=== PATIENT | male | born 1975 | race Caucasian/White ===

== ENCOUNTER 2016-03-16 16:42 | Inpatient (IN) ==
--- NOTE | 2016-03-16 17:20 | Emergency Department Note ---
Disposition Clinical Impression: Suicidal ideation, History of bipolar disorder, History of schizophrenia Disposition: Admitted As Inpatient Time of Disposition: 22:06 (Admitted to 1a) Psych HPI - General Chief Complaint: ED Psychiatric Symptoms Stated Complaint: SI "I feel like I dont want to live anymore" Time Seen by Provider: 03/16/16 17:07 Source: patient Mode of arrival: ambulatory Limitations: no limitations Nursing Notes Reviewed: Yes Vital Signs Reviewed: Yes - History of Present Illness HPI Narrative: Patient is a 40-year-old male with past history of bipolar disorder, schizophrenia, COPD. Patient says that he takes psychiatric medications but he cannot remember what they are. He follows with [facility]. Patient says that he has had a admissions in the past due to suicidal ideation. He presents today due to feeling depressed, suicidal ideation with a plan to hang himself. He denies any homicidal ideation. Denies hearing any voices or seeing any visual hallucinations. Denies any chest pain, shortness breath, nausea, vomiting, fevers, abdominal pain, urinary complaints of burning or blood in urine, no change in bowel habits. - Related Data Previous Rx's Medication Instructions Recorded Citalopram Hydrobromide [Celexa] 20 mg PO DAILY #30 tablet 08/25/15 Hydroxyzine HCl 50 mg PO TID PRN #90 tablet 08/25/15 RisperiDONE MICROSPHERES 50 mg IM Q2W #1 syringe 08/25/15 [RisperDAL CONSTA] RisperiDONE [RisperDAL] 2 mg PO HS #30 tablet 08/25/15 TraMADol [Ultram] 50 mg PO BID PRN #60 tablet 08/25/15 HYDROcodone/Acet 5/325 mg [[place] 1 tab PO Q6H PRN #12 tab 09/03/15 5-325 mg] Allergies Allergy/AdvReac Type Severity Reaction Status Date / Time No Known Allergies Allergy Verified 03/16/16 16:48 Constitutional: Denies: fever ENT ED: Denies: ear pain, throat pain Cardiovascular: Denies: chest pain, palpitations Respiratory: Denies: cough, dyspnea, wheezes Gastrointestinal: Denies: abdominal pain, nausea, vomiting, diarrhea, constipation Genitourinary: Denies: urgency, dysuria, frequency, hematuria Musculoskeletal: Denies: back pain, neck pain, joint swelling Integumentary: Denies: rash Neurological: Denies: headache, weakness, numbness Psychiatric: Reports: anxiety, depression, suicidal thoughts Past Medical History - Past Medical History Attestation: Yes The following information was validated with the patient. Source: patient Medical history: Reports: asthma, COPD, hypertension Psychiatric history: Reports: anxiety, schizophrenia, previous psychiatric hospitalization, other - Social History Smoking Status: Current every day smoker Smokeless Tobacco Status: No Alcohol use: Reports: none Drug use: Reports: marijuana Physical Exam - General Limitations: no limitations General appearance: alert - Head Head exam: atraumatic, normocephalic, normal inspection - Eye Eye exam: Present: normal appearance, PERRL, EOMI - ENT ENT exam: normal exam, normal oropharynx, mucous membranes moist - Neck Neck exam: Present: normal inspection, full ROM, trachea midline - Chest Chest inspection: Present: normal inspection, symmetric chest wall rise - Respiratory Respiratory exam: Present: wheezes (Mild wheeze in bilateral lower lobes) - Cardiovascular Cardiovascular exam: Present: regular rate, normal rhythm, normal heart sounds - Abdominal Exam Abdominal exam: Present: soft, Non-Tender. Absent: tenderness, distention, guarding, rebound, rigidity - Extremities Exam Extremities exam: Present: normal inspection, full ROM. Absent: tenderness, pedal edema - Back Exam Back exam: Present: normal inspection, full ROM. Absent: tenderness - Neurological Exam Neurological exam: Present: alert, oriented X3 - Psychiatric Psychiatric exam: Present: normal affect, normal mood - Skin Skin exam: Present: warm, dry, intact, normal color Course Course Narrative: Vitals within normal limits. Physical exam showed mild wheezes in bilateral lower lobes. Otherwise, the rest of the physical and was benign. Patient has suicidal ideation with plan to hang himself. We will obtain basic medical clearance labs and then consult psychiatric team for further evaluation. 22:04 patient has been evaluated by psychiatric team. They believe that the patient needs admitted for further care. [place] slip has been signed by Dr. Sanchez. Vital Signs Temperature 98.2 F 03/16/16 16:43 Pulse Rate 77 03/16/16 16:43 Respiratory Rate 16 03/16/16 16:43 Blood Pressure 147/86 03/16/16 16:43 O2 Sat by Pulse Oximetry 96 03/16/16 16:43 Temperature 98.2 F 03/16/16 16:43 Pulse Rate 77 03/16/16 17:20 Respiratory Rate 16 03/16/16 17:20 Blood Pressure 147/86 03/16/16 17:20 O2 Sat by Pulse Oximetry 96 03/16/16 17:20 Oxygen Delivery Oxygen Delivery Room Air Psych - MDM Narrative Medical decision making narrative: Vitals within normal limits. Physical exam showed mild wheezes in bilateral lower lobes. Otherwise, the rest of the physical and was benign. Patient has suicidal ideation with plan to hang himself. We will obtain basic medical clearance labs and then consult psychiatric team for further evaluation. 22:04 patient has been evaluated by psychiatric team. They believe that the patient needs admitted for further care. [place] slip has been signed by Dr. Sanchez. - Lab Data Result diagrams: 03/16/16 17:54 03/16/16 17:54 Lab Results 03/16/16 03/16/16 03/16/16 Range/Units 17:29 17:29 17:54 WBC 10.7 (4.3-11.1) K/mcL RBC 4.87 (4.19-5.50) M/mcL Hgb 14.7 (12.9-16.9) g/dL Hct 43.3 (37.5-50.1) % MCV 88.9 (83.0-100.0) fL MCH 30.2 (28.0-33.3) pg MCHC 33.9 (31.6-35.5) g/dL RDW 12.7 (11.5-14.5) % Plt Count 299 (140-400) K/mcL MPV 9.4 (9.4-12.4) fL Immature Gran % 0.4 (0-4) % Seg Neutrophils % 63.7 % Lymphocytes % 23.6 % Monocytes % 9.0 % Eosinophils % 2.7 % Basophils % 0.6 % Neutrophils # 6.8 (1.6-8.9) K/mcL Lymphocytes # 2.5 (0.6-4.6) K/mcL Monocytes # 1.0 (0.0-1.3) K/mcL Eosinophils # 0.3 (0.0-0.6) K/mcL Basophils # 0.1 (0.0-0.2) K/mcL Sodium (136-145) mEq/L Potassium (3.5-4.5) mEq/L Chloride (98-109) mEq/L Carbon Dioxide (19-29) mEq/L BUN (8-26) mg/dL Creatinine (0.72-1.25) mg/dL Est GFR ( Amer) (> 60) Est GFR (Non-Af Amer) (> 60) BUN/Creatinine Ratio (6-26) Glucose (70-99) mg/dL Calculated Osmolality (280-300) Calcium (8.6-10.8) mg/dL Urine Color Yellow (Yellow) Urine Clarity Clear (Clear) Urine pH 7.0 (5.0-8.0) pH Units Ur Specific [place] < 1.005 L (1.010-1.025) Urine Protein Negative (Neg-Trace) mg/dL Urine Glucose (UA) Normal (Normal) mg/dL Urine Ketones Negative (Negative) mg/dL Urine Blood Negative (Negative) Urine Nitrite Negative (Negative) Urine Bilirubin Negative (Negative) Urine Urobilinogen Normal (Normal) mg/dL Ur Leukocyte Esterase Trace H (Negative) Urine Microscopic RBC 0-3 (0-3) per hpf Urine Microscopic WBC 0-3 (0-3) per hpf Ur Squamous Epith Cells None Seen (None-Few) per lpf Urine Bacteria None Seen (None-Few) per hpf Hyaline Casts None Seen (None-Few) per lpf Salicylates (15-30) mg/dL Urine Opiates Screen Negative (Yswwgh=099) ng/mL Acetaminophen (10-30) mcg/mL Ur Barbiturates Screen Negative (Ippfko=288) ng/mL Ur Phencyclidine Scrn Negative (Cutoff=25) ng/mL Ur Amphetamines Screen Negative (Vmgzuk=7279) ng/mL U Benzodiazepines Scrn Negative (Kajazw=441) ng/mL Urine Cocaine Screen Negative (Cutoff= 300) ng/mL U Marijuana (THC) Screen Positive H (Cutoff = 50) ng/mL Ethyl Alcohol (0-10) mg/dL 03/16/16 Range/Units 17:54 WBC (4.3-11.1) K/mcL RBC (4.19-5.50) M/mcL Hgb (12.9-16.9) g/dL Hct (37.5-50.1) % MCV (83.0-100.0) fL MCH (28.0-33.3) pg MCHC (31.6-35.5) g/dL RDW (11.5-14.5) % Plt Count (140-400) K/mcL MPV (9.4-12.4) fL Immature Gran % (0-4) % Seg Neutrophils % % Lymphocytes % % Monocytes % % Eosinophils % % Basophils % % Neutrophils # (1.6-8.9) K/mcL Lymphocytes # (0.6-4.6) K/mcL Monocytes # (0.0-1.3) K/mcL Eosinophils # (0.0-0.6) K/mcL Basophils # (0.0-0.2) K/mcL Sodium 140 (136-145) mEq/L Potassium 3.7 (3.5-4.5) mEq/L Chloride 107 (98-109) mEq/L Carbon Dioxide 24 (19-29) mEq/L BUN 7 L (8-26) mg/dL Creatinine 0.76 (0.72-1.25) mg/dL Est GFR ( Amer) > 60 (> 60) Est GFR (Non-Af Amer) > 60 (> 60) BUN/Creatinine Ratio 9 (6-26) Glucose 91 (70-99) mg/dL Calculated Osmolality 288 (280-300) Calcium 9.3 (8.6-10.8) mg/dL Urine Color (Yellow) Urine Clarity (Clear) Urine pH (5.0-8.0) pH Units Ur Specific [place] (1.010-1.025) Urine Protein (Neg-Trace) mg/dL Urine Glucose (UA) (Normal) mg/dL Urine Ketones (Negative) mg/dL Urine Blood (Negative) Urine Nitrite (Negative) Urine Bilirubin (Negative) Urine Urobilinogen (Normal) mg/dL Ur Leukocyte Esterase (Negative) Urine Microscopic RBC (0-3) per hpf Urine Microscopic WBC (0-3) per hpf Ur Squamous Epith Cells (None-Few) per lpf Urine Bacteria (None-Few) per hpf Hyaline Casts (None-Few) per lpf Salicylates < 5.0 L (15-30) mg/dL Urine Opiates Screen (Yjwafd=240) ng/mL Acetaminophen < 1.0 L (10-30) mcg/mL Ur Barbiturates Screen (Selrzj=814) ng/mL Ur Phencyclidine Scrn (Cutoff=25) ng/mL Ur Amphetamines Screen (Ceznvu=6538) ng/mL U Benzodiazepines Scrn (Byuizt=931) ng/mL Urine Cocaine Screen (Cutoff= 300) ng/mL U Marijuana (THC) Screen (Cutoff = 50) ng/mL Ethyl Alcohol < 10 (0-10) mg/dL Psychiatric Medical Clearance - Medical Clearance Checklist Does the patient have a NEW psychiatric condition?: No Any abnormalities indicating possible medical illness?: No Any history of medical issues?: Yes (COPD) Medical History: No Social History Section defined Any abnormal vital signs prior to transfer?: No Current Vitals: Last Vital Signs Temp 98.2 F 03/16/16 16:43 Pulse 77 03/16/16 17:20 Resp 16 03/16/16 17:20 BP 147/86 03/16/16 17:20 Pulse Ox 96 03/16/16 17:20 Is the patient intoxicated or cognitively impaired?: No Psychiatric Lab Panel: Drug Levels and Toxicity 03/16/16 03/16/16 17:29 17:54 Urine Opiates Screen Negative Acetaminophen < 1.0 L Ur Barbiturates Screen Negative Ur Phencyclidine Scrn Negative Ur Amphetamines Screen Negative U Benzodiazepines Scrn Negative Urine Cocaine Screen Negative U Marijuana (THC) Screen Positive H Ethyl Alcohol < 10 Any abnormalities on the physical exam?: No Any abnormal labs?: No Abnormal Labs: Abnormal lab results BUN 7 mg/dL (8-26) L 03/16/16 17:54 Ur Specific [place] < 1.005 (1.010-1.025) L 03/16/16 17:29 Ur Leukocyte Esterase Trace (Negative) H 03/16/16 17:29 Salicylates < 5.0 mg/dL (15-30) L 03/16/16 17:54 Acetaminophen < 1.0 mcg/mL (10-30) L 03/16/16 17:54 U Marijuana (THC) Screen Positive ng/mL (Cutoff = 50) H 03/16/16 17:29 Does the patient require durable medical equiptment?: No Is the patient ambulatory?: Yes Is the patient a fall risk?: No Has the patient been medically cleared?: Yes Any acute medical condition require Tx prior to transfer?: No Statement of Medical Clearance: I have evaluated the patient, reviewed diagnostic information, and certify that the patient's medical condition is sufficiently stable that transfer to the psychiatric unit does not pose a significant risk of deterioration. Attestation Statement - Attestation Attestation: I examined this patient and my medical decision-making was reviewed with the STEEL ERECTOR APPRENTICE/PA/Advanced Practice Nurse/Resident Physician. I agree with the documented findings, disposition and treatment plan as described except to the extent set forth below. Patient emergency department complaining of suicidal thoughts. History of schizophrenia. Denies physical complaints. Exam shows an anxious with pressured speech. Plan. Medical clearance and evaluation by psych department. Patient evaluated by psych. They feel he is appropriate for admission for suicidal ideation with a plan to hang himself. Admitted.
[2016-03-16 17:39] LABS: Bilirubin,Urine Negative (Negative); Blood,Urine Negative (Negative); Clarity,Urine Clear (Clear); Color,Urine Yellow (Yellow); Glucose,Urine (UA) Normal (Normal); Ketones,Urine Negative (Negative); Leukocyte Esterase,Urine Trace (Negative); Nitrite,Urine Negative (Negative); Protein,Urine Negative (Neg-Trace); Specific Gravity,Urine < 1.005 (1.010-1.025); Urobilinogen,Urine Normal (Normal)
[2016-03-16 17:41] LABS: Bacteria,Urine None Seen per hpf (None-Few); Hyaline Casts,Urine None Seen per lpf (None-Few); RBC,Urine 0-3 per hpf (0-3); Squamous Epithelial Cell,Urine None Seen per lpf (None-Few); WBC,Urine 0-3 per hpf (0-3)
[2016-03-16 17:45] LABS: Amphetamine Screen,Urine Negative ng/mL (Cutoff=1000); Barbiturate Screen,Urine Negative ng/mL (Cutoff=200); Benzodiazepines Screen,Urine Negative ng/mL (Cutoff=200); Cannabinoid Screen,Urine Positive ng/mL (Cutoff = 50); Cocaine Screen,Urine Negative ng/mL (Cutoff= 300); Opiate Screen,Urine Negative ng/mL (Cutoff=300); Phencyclidine Screen,Urine Negative ng/mL (Cutoff=25)
[2016-03-16 18:00] LABS: Basophils # 0.1 K/mcL (0.0-0.2); Basophils % 0.6 %; Eosinophils # 0.3 K/mcL (0.0-0.6); Eosinophils % 2.7 %; Hematocrit 43.3 % (37.5-50.1); Hemoglobin 14.7 g/dL (12.9-16.9); Immature Granulocytes % 0.4 % (0-4); Lymphocytes # 2.5 K/mcL (0.6-4.6); Lymphocytes % 23.6 %; Mean Corpuscular HGB Conc 33.9 g/dL (31.6-35.5); Mean Corpuscular Hemoglobin 30.2 pg (28.0-33.3); Mean Corpuscular Volume 88.9 fL (83.0-100.0); Mean Platelet Volume 9.4 fL (9.4-12.4); Neutrophils # 6.8 K/mcL (1.6-8.9); Platelet Count 299 K/mcL (140-400); Red Blood Count 4.87 M/mcL (4.19-5.50); Red Cell Distribution Width 12.7 % (11.5-14.5); Segmented Neutrophils % 63.7 %
[2016-03-16 18:14] LABS: BUN/Creatinine Ratio 9 (6-26); Blood Urea Nitrogen 7 mg/dL (8-26); Calcium 9.3 mg/dL (8.6-10.8); Carbon Dioxide 24 mEq/L (19-29); Chloride 107 mEq/L (98-109); Glucose 91 mg/dL (70-99); Osmolality,Calculated 288 (280-300); Potassium 3.7 mEq/L (3.5-4.5); Sodium 140 mEq/L (136-145); eGFR For African Americans > 60 (> 60); eGFR For Non-African Americans > 60 (> 60)
[2016-03-16 18:16] LABS: Acetaminophen < 1.0 mcg/mL (10-30); Ethanol < 10 mg/dL (0-10); Salicylate < 5.0 mg/dL (15-30)
[2016-03-16] MEDS ORDERED: MOM Conc 10 ML UD.LIQ PO PRN (22:51)
[2016-03-16] MEDS ORDERED: Mag Hydrox/Al Hydrox/Simeth 30 ML UDC PO PRN (22:51)
[2016-03-16] MEDS ORDERED: *HR* LORazepam 2 MG/ML VIAL IM PRN (22:51)
[2016-03-16] MEDS ORDERED: Haloperidol Lactate 5 MG/ML VIAL IM PRN (22:51)
[2016-03-16] MEDS ORDERED: traZODone 50 MG TABLET PO PRN (22:51)
[2016-03-16] MEDS ORDERED: *HR* LORazepam 1 MG TABLET PO PRN (22:51)
[2016-03-16] MEDS ORDERED: hydrOXYzine pamoate 25 MG CAPSULE PO PRN (23:01)
[2016-03-16] MEDS ORDERED: INVEGA SUSTENNA IM SCH (23:15)
[2016-03-16] MEDS: Divalproex (12 HR) 500 MG TABLET PO SCH (23:46)
[2016-03-16] MEDS: risperiDONE 1 MG TABLET PO SCH (23:47)
[2016-03-16] MEDS: Mirtazapine 15 MG TABLET PO SCH (23:47)
[2016-03-16] MEDS: clonazePAM 0.5 MG TABLET PO SCH (23:47)
[2016-03-17] MEDS: Nicotine 21 MG PATCH.TD24 TD SCH (08:54)
[2016-03-17] MEDS: risperiDONE 1 MG TABLET PO SCH ×2 (09:10→20:55)
[2016-03-17] MEDS: clonazePAM 0.5 MG TABLET PO SCH ×2 (09:11→20:55)
[2016-03-17] MEDS: Divalproex (12 HR) 500 MG TABLET PO SCH ×2 (09:11→20:55)
--- NOTE | 2016-03-17 10:40 | Psychiatry History & Physical ---
Date of Encounter: 03/17/16 Time of Encounter: 10:38 History of Present Illness Patient Stated Chief Complaint: Suicidal Medicare Admission Attestation: For traditional Medicare patients the provided hospital inpatient services are reasonable and necessary and in the case of services not specified as inpatient -only under 42 CFR 419.22 (n), that they are appropriately provided as inpatient services in accordance 42 CFR 412.3. For Critical Access Hospital the patient may reasonably be expected to be discharged or transferred to a hospital within 96 hours after admission to the Critical Access Hospital. Admitted From: Emergency Dept History of Present Illness: Mr. Lima is a 40 year old male admitted from the emergency room for suicidal ideation. Patient has a history of bipolar disorder and schizophrenia and has been taking psychotropic medications as listed. He reports feeling depressed and feeling hopeless and thinking about suicide. He denies any command hallucination. His tox screen was positive for THC. Past Med Surg Social Fam HX - Past Medical History Medical history: asthma, COPD, hypertension - Past Psychiatric History Psychiatric history: Reports: depression, schizophrenia, previous psychiatric hospitalization Family psychiatric history: Unknown Family History of Suicide: Unknown - Social History Smoking Status: Current every day smoker Smokeless Tobacco Status: No Alcohol use: none Drug use: marijuana Medications & Allergies Benztropine Mesylate 1 mg PO HS 03/16/16 [History] Citalopram Hydrobromide [Celexa] 30 mg PO DAILY 03/16/16 [History] ClonazePAM [Klonopin] 0.5 mg PO BID 03/16/16 [History] Divalproex (12 HR) [Depakote (12 HR)] 500 mg PO BID 03/16/16 [History] HydrOXYzine Pamoate [Vistaril] 50 mg PO TID PRN 03/16/16 [History] Mirtazapine [Mirtazapine] 30 mg PO HS 03/16/16 [History] Paliperidone Palmitate [Invega Sustenna] 234 mg IM QMONTH 03/16/16 [History] RisperiDONE [Risperidone] 4 mg PO BID 03/16/16 [History] Allergies No Known Allergies Allergy (Verified 03/16/16 16:48) Review of Systems Psychiatric: Reports: depression, suicidal ideation, hopelessness Mental Status Exam Patient orientation: Yes Person, Yes Time, Yes Place Level of alertness: Sedated Patient appearance: Unkempt, Disheveled Behavior: anxious, suspicious, distractible, withdrawn Psychomotor activity: Slowed Eye contact: Minimal Contact Mood description: Depressed Affect description: constricted, blunted, dysphoric Speech pattern: Appropriate, Delayed, Limited, Monotone Speech volume: Normal Thought process: Logical, Circumstantial, [place] Thought content: Yes Suicidal ideation, Yes Ideas of reference, Yes Paranoid delusion Perceptual disturbances: No Auditory hallucinations, No Visual hallucinations Attention span: Unable to Focus Memory description: Immediate Impaired, Remote Impaired Patient reliability: Questionable Historian Intelligence estimate: Below Average Judgment: Limited Insight: Partial Results - Vital Signs Vital signs: Temp Pulse Resp BP Pulse Ox 97.7 F 81 12 136/82 96 03/17/16 09:00 03/17/16 09:00 03/17/16 09:00 03/17/16 09:00 03/16/16 17:20 - Labs Labs: Laboratory Last Values WBC 10.7 K/mcL (4.3-11.1) 03/16/16 17:54 RBC 4.87 M/mcL (4.19-5.50) 03/16/16 17:54 Hgb 14.7 g/dL (12.9-16.9) 03/16/16 17:54 Hct 43.3 % (37.5-50.1) 03/16/16 17:54 MCV 88.9 fL (83.0-100.0) 03/16/16 17:54 MCH 30.2 pg (28.0-33.3) 03/16/16 17:54 MCHC 33.9 g/dL (31.6-35.5) 03/16/16 17:54 RDW 12.7 % (11.5-14.5) 03/16/16 17:54 Plt Count 299 K/mcL (140-400) 03/16/16 17:54 MPV 9.4 fL (9.4-12.4) 03/16/16 17:54 Immature Gran % 0.4 % (0-4) 03/16/16 17:54 Seg Neutrophils % 63.7 % 03/16/16 17:54 Lymphocytes % 23.6 % 03/16/16 17:54 Monocytes % 9.0 % 03/16/16 17:54 Eosinophils % 2.7 % 03/16/16 17:54 Basophils % 0.6 % 03/16/16 17:54 Neutrophils # 6.8 K/mcL (1.6-8.9) 03/16/16 17:54 Lymphocytes # 2.5 K/mcL (0.6-4.6) 03/16/16 17:54 Monocytes # 1.0 K/mcL (0.0-1.3) 03/16/16 17:54 Eosinophils # 0.3 K/mcL (0.0-0.6) 03/16/16 17:54 Basophils # 0.1 K/mcL (0.0-0.2) 03/16/16 17:54 Sodium 140 mEq/L (136-145) 03/16/16 17:54 Potassium 3.7 mEq/L (3.5-4.5) 03/16/16 17:54 Chloride 107 mEq/L (98-109) 03/16/16 17:54 Carbon Dioxide 24 mEq/L (19-29) 03/16/16 17:54 BUN 7 mg/dL (8-26) L 03/16/16 17:54 Creatinine 0.76 mg/dL (0.72-1.25) 03/16/16 17:54 Est GFR ( Amer) > 60 (> 60) 03/16/16 17:54 Est GFR (Non-Af Amer) > 60 (> 60) 03/16/16 17:54 BUN/Creatinine Ratio 9 (6-26) 03/16/16 17:54 Glucose 91 mg/dL (70-99) 03/16/16 17:54 Calculated Osmolality 288 (280-300) 03/16/16 17:54 Calcium 9.3 mg/dL (8.6-10.8) 03/16/16 17:54 Urine Color Yellow (Yellow) 03/16/16 17:29 Urine Clarity Clear (Clear) 03/16/16 17:29 Urine pH 7.0 pH Units (5.0-8.0) 03/16/16 17:29 Ur Specific [employer] [place] < 1.005 (1.010-1.025) L 03/16/16 17:29 Urine Protein Negative mg/dL (Neg-Trace) 03/16/16 17:29 Urine Glucose (UA) Normal mg/dL (Normal) 03/16/16 17:29 Urine Ketones Negative mg/dL (Negative) 03/16/16 17:29 Urine Blood Negative (Negative) 03/16/16 17:29 Urine Nitrite Negative (Negative) 03/16/16 17: Urine Bilirubin Negative (Negative) 03/16/16 17: Urine Urobilinogen Normal mg/dL (Normal) 03/16/16 17:29 Ur Leukocyte Esterase Trace (Negative) H 03/16/16 17:29 Urine Microscopic RBC 0-3 per hpf (0-3) 03/16/16 17:29 Urine Microscopic WBC 0-3 per hpf (0-3) 03/16/16 17:29 Ur Squamous Epith Cells None Seen per lpf (None-Few) 03/16/16 17: Urine Bacteria None Seen per hpf (None-Few) 03/16/16 17: Hyaline Casts None Seen per lpf (None-Few) 03/16/16 17:29 Salicylates < 5.0 mg/dL (15-30) L 03/16/16 17:54 Urine Opiates Screen Negative ng/mL (Hrvbjp=350) 03/16/16 17:29 Acetaminophen < 1.0 mcg/mL (10-30) L 03/16/16 17:54 Ur Barbiturates Screen Negative ng/mL (Awxzfp=957) 03/16/16 17:29 Ur Phencyclidine Scrn Negative ng/mL (Cutoff=25) 03/16/16 17:29 Ur Amphetamines Screen Negative ng/mL (Ugkyuk=3778) 03/16/16 17:29 U Benzodiazepines Scrn Negative ng/mL (Ohpvvy=445) 03/16/16 17:29 Urine Cocaine Screen Negative ng/mL (Cutoff= 300) 03/16/16 17:29 U Marijuana (THC) Screen Positive ng/mL (Cutoff = 50) H 03/16/16 17:29 Ethyl Alcohol < 10 mg/dL (0-10) 03/16/16 17:54 Assessment and Plan (1) Schizoaffective disorder, bipolar type Current visit: Yes Status: Acute Plan: Admit inpatient for safety and stabilization, Close observation, Suicide Precautions per unit protocol, Encourage participation in unit milieu, Group Therapy, Monitor sleep, Monitor appetite Risks, benefits, side effects, alternatives discussed w/pt: Yes Patient agreeable to treatment: Yes (2) Cannabis dependence Current visit: Yes Status: Acute Plan: Admit inpatient for safety and stabilization, Close observation, Suicide Precautions per unit protocol, Encourage participation in unit milieu, Group Therapy, Monitor sleep, Monitor appetite Risks, benefits, side effects, alternatives discussed w/pt: Yes Patient agreeable to treatment: Yes Estimated Length of Stay (Days): 5
[2016-03-17] MEDS: Mirtazapine 15 MG TABLET PO SCH (20:54)
[2016-03-18] MEDS: Nicotine 21 MG PATCH.TD24 TD SCH (09:02)
[2016-03-18] MEDS: Divalproex (12 HR) 500 MG TABLET PO SCH ×2 (09:03→21:05)
[2016-03-18] MEDS: clonazePAM 0.5 MG TABLET PO SCH ×2 (09:03→21:05)
[2016-03-18] MEDS: risperiDONE 1 MG TABLET PO SCH ×2 (09:03→21:05)
--- NOTE | 2016-03-18 13:39 | Psychiatry Progress Note ---
Date of Encounter: 03/18/16 Time of Encounter: 13:51 Subjective Interval history: Patient seen for follow-up. Nursing staff reports he is out of his room, appropriate to his peers and staff. Not agitated, compliant with his meds and denied any suicidal ideation. He slept most of the day yesterday but today he is active and well-groomed. Speech is organized. Review of Systems Psychiatric: Reports: depression, anxiety Objective: Exam Patient orientation: Yes Person, Yes Time, Yes Place Level of alertness: Alert Patient appearance: Appropriate, Well Groomed Behavior: calm, cooperative, anxious Psychomotor activity: Slowed Eye contact: Maintains Eye Contact Mood description: Depressed, Anxious, Labile Affect description: labile, blunted, dysphoric Speech pattern: Normal rate, Normal rhythm, Normal tone, Appropriate, Limited Speech volume: Normal Thought process: Intact, Logical, Circumstantial, [place] Thought content: Yes Intact, No Suicidal ideation, Yes Ideas of reference, Yes Paranoid delusion Perceptual disturbances: No Auditory hallucinations, No Visual hallucinations Judgment: Limited Insight: Partial Results - Vital Signs Vital Signs: Temp Pulse Resp BP Pulse Ox 97.8 F 83 16 113/78 96 03/18/16 08:25 03/18/16 08:25 03/18/16 08:25 03/18/16 08:25 03/16/16 17:20 Assessment and Plan (1) Schizoaffective disorder, bipolar type Current visit: Yes Status: Acute Plan: Continue hospitalization, Close observation, Suicide Precautions per unit protocol, Encourage participation in unit milieu, Group Therapy, Monitor sleep, Monitor appetite Risks, benefits, side effects, alternatives discussed w/pt: Yes Patient agreeable to treatment: Yes (2) Cannabis dependence Current visit: Yes Status: Acute Plan: Continue hospitalization, Close observation, Suicide Precautions per unit protocol, Encourage participation in unit milieu, Group Therapy, Monitor sleep, Monitor appetite Risks, benefits, side effects, alternatives discussed w/pt: Yes Patient agreeable to treatment: Yes Consult Discharge Plan - Plan Referrals: [facility] [Outside] - 03/24/16 11:00 am (The above appointment is with Liane Dobbs, skilled nursing case manager. You will resume your groups every Tuesday and Tuesday at 9:00 AM. You will also see Dr. Marx on 04/22/2016 at 5: 00 PM.)
[2016-03-18] MEDS: Mirtazapine 15 MG TABLET PO SCH (21:05)
[2016-03-19] MEDS: Ibuprofen 400 MG TABLET PO PRN ×2 (05:38→14:23)
[2016-03-19] MEDS: risperiDONE 1 MG TABLET PO SCH (09:27)
[2016-03-19 09:28] VITALS: BP 136/86
[2016-03-19] MEDS: Nicotine 21 MG PATCH.TD24 TD SCH (09:28)
[2016-03-19] MEDS: clonazePAM 0.5 MG TABLET PO SCH (09:28)
[2016-03-19] MEDS: Divalproex (12 HR) 500 MG TABLET PO SCH (09:28)
--- NOTE | 2016-03-19 14:27 | Discharge Summary ---
Date of Encounter: 03/19/16 Time of Encounter: 14:13 Diagnosis - Discharge Diagnosis (1) Schizoaffective disorder, bipolar type Status: Acute (2) Cannabis dependence Status: Acute Medications - Discharge Medications Prescriptions: Benztropine Mesylate 1 mg PO HS #30 tablet Citalopram Hydrobromide [Celexa] 30 mg PO DAILY #45 tablet ClonazePAM [Klonopin] 0.5 mg PO BID #60 tablet Divalproex (12 HR) [Depakote (12 HR)] 500 mg PO BID #60 tablet. HydrOXYzine Pamoate [Vistaril] 50 mg PO TID PRN #90 capsule PRN Reason: Anxiety RisperiDONE [Risperidone] 4 mg PO BID #60 tablet Mirtazapine 30 mg PO HS 03/16/16 [History] Paliperidone Palmitate [Invega Sustenna] 234 mg IM QMONTH 03/16/16 [History] Benztropine Mesylate 1 mg PO HS #30 tablet 03/19/16 [Rx] Citalopram Hydrobromide [Celexa] 30 mg PO DAILY #45 tablet 03/19/16 [Rx] ClonazePAM [Klonopin] 0.5 mg PO BID #60 tablet 03/19/16 [Rx] Divalproex (12 HR) [Depakote (12 HR)] 500 mg PO BID #60 tablet. 03/19/16 [Rx] HydrOXYzine Pamoate [Vistaril] 50 mg PO TID PRN #90 capsule 03/19/16 [Rx] RisperiDONE [Risperidone] 4 mg PO BID #60 tablet 03/19/16 [Rx] Allergies No Known Allergies Allergy (Verified 03/16/16 16:48) Provider Date of admission: 03/16/16 22:01 Primary care physician: PCP NO Discharging clinician: Regis Olivares Assessment and Plan - Patient/Caregiver Discharge Instructions Activity: resume usual activities as tolerated Diet: regular diet Additional Instructions: You are scheduled to meet with Josesito at [facility] on 03/22/2016 at 9:30am. - Follow up Plan Follow up with: [facility] [Outside] - 03/24/16 11:00 am (The above appointment is with Liane Dobbs, manager of case management. You will resume your groups every Tuesday and Tuesday at 9:00 AM. You will also see Dr. Marx on 04/22/2016 at 5: 00 PM.) Functional capacity at discharge: independent ambulation Overall status at discharge: Stable Disposition: Home, Self-Care Hospital Course Hospital course: Mr. Lima is a 40 year old male admitted to the [facility] over his bipolar disorder and suicidal ideation. Patient was noncompliant with his medication and abusing THC. For details of the admission please see H&P On the unit patient was restarted on his medication, he participated and activities groups his ADLs improved. He was interacting appropriately with staff and peers he denied suicidal ideation and tolerated medication well without any side effects. Prior to discharge patient was medically stable and nonsuicidal showing good insight into his illness and educated about compliance and drug abuse. He was ready for discharge and follow-up as an outpatient. - Time Spent with Patient Total time spent providing and/or coordinating discharge services: Greater than 30 minutes Quality - Multiple Antipsychotics Patient discharged on 2 or more antipsychotic medications: No Procedures - Procedures Procedures: Medication Management, Crisis Stabilization, Supportive Therapy, Group Therapy, Psychoeducational Therapy Mental Status Exam - Mental Status Exam Patient orientation: Yes Person, Yes Time, Yes Place Level of alertness: Alert Patient appearance: Appropriate, Well Groomed Behavior: calm, cooperative, anxious Psychomotor activity: Slowed Eye contact: Maintains Eye Contact Mood description: Euthymic/stable, Depressed, Anxious, Labile Affect description: congruent with mood, full range Speech pattern: Normal rate, Normal rhythm, Normal tone, Appropriate, Limited Speech Volume: Normal Thought process: Intact, Logical, Circumstantial, [place] Thought Content: Yes Intact, No Suicidal ideation, Yes Ideas of reference, Yes Paranoid delusion Perceptual Disturbances: No Auditory hallucinations, No Visual hallucinations Judgment: Fair Insight: Partial
[2016-04-13] MEDS ORDERED: INVEGA SUSTENNA IM SCH (09:00)
== END 2016-03-19 14:45 | disposition home or self-care (01) | DRG 885 ==
LOC: EMEROO 16:42 → 1ANU 22:01
PROVIDERS: ADMIT Psychiatry & Neurology Psychiatry; ATTEND Psychiatry & Neurology Psychiatry

== ENCOUNTER 2016-05-23 15:08 | Inpatient (IN) ==
--- NOTE | 2016-05-23 15:23 | Emergency Department Note ---
Disposition Clinical Impression: Acute psychosis, Chronic schizophrenia Disposition: Admitted As Inpatient Referrals: NO,PCP [Non-Partnered Physician] - Forms: ED Satisfaction Letter Time of Disposition: 18:38 Psych HPI - General Chief Complaint: ED Psychiatric Symptoms Stated Complaint: HI Time Seen by Provider: 05/23/16 15:17 Source: patient Mode of arrival: ambulatory Limitations: no limitations Nursing Notes Reviewed: Yes Vital Signs Reviewed: Yes - History of Present Illness HPI Narrative: 40-year-old with a history of paranoid schizophrenia who has not taken his medicines his paranoid states that he thinks someone is trying to kill him. States that he will action if he feels that he is threatened however he states no same sentence that he is not sure that he is not imagining all this. Pt complaint: medical clearance request, other (Arytenoid psychotic HI) If medical clearance, reason: other Onset (ago): Just [employer] Duration: constant History of similar episodes: No Improves with: none Worsens with: none Context: not taking psychiatric medications Alleged intoxication: No Associated Psychiatric Symptoms: suicidal ideation, auditory hallucinations, visual hallucinations, delusions Associated symptoms: Reports: denies other symptoms Traumatic symptoms: denies traumatic injury Treatments prior to arrival: none - Related Data Home Medications Medication Instructions Recorded Confirmed Mirtazapine 30 mg PO HS 03/16/16 03/16/16 Paliperidone Palmitate [Invega 234 mg IM QMONTH 03/16/16 03/16/16 Sustenna] Previous Rx's Medication Instructions Recorded Benztropine Mesylate 1 mg PO HS #30 tablet 03/19/16 Citalopram Hydrobromide [Celexa] 30 mg PO DAILY #45 tablet 03/19/16 ClonazePAM [Klonopin] 0.5 mg PO BID #60 tablet 03/19/16 Divalproex (12 HR) [Depakote (12 500 mg PO BID #60 tablet.dr 03/19/16 HR)] HydrOXYzine Pamoate [Vistaril] 50 mg PO TID PRN #90 capsule 03/19/16 RisperiDONE [Risperidone] 4 mg PO BID #60 tablet 03/19/16 Amoxicillin/Clavulanate [Augmentin] 875 mg PO BIDWM #20 tablet 03/30/16 Allergies Allergy/AdvReac Type Severity Reaction Status Date / Time No Known Allergies Allergy Verified 03/16/16 16:48 All systems ED: reviewed and negative except as stated. Constitutional: Denies: fever, chills, weakness, weight change Eyes: Denies: eye pain, eye discharge, vision change ENT ED: Denies: ear pain, throat pain, dental pain, hearing loss, epistaxis, congestion, dysphagia Cardiovascular: Denies: chest pain, palpitations, dyspnea on exertion, edema, syncope Respiratory: Denies: cough, dyspnea, wheezes, hemoptysis, stridor Gastrointestinal: Denies: abdominal pain, nausea, vomiting, diarrhea, constipation, hematemesis, melena, hematochezia Genitourinary: Denies: urgency, dysuria, frequency, hematuria Musculoskeletal: Denies: back pain, neck pain, arthralgia, myalgia Integumentary: Denies: rash, abrasion, lesions Neurological: Denies: headache, weakness, numbness, paresthesias, confusion, abnormal gait, vertigo Psychiatric: Reports: suicidal thoughts, auditory hallucinations, visual hallucinations. Denies: anxiety, depression, homicidal thoughts Endocrine: Denies: fatigue Hematological/Lymphatic: Denies: easy bleeding, easy bruising Allergic/Immunologic: Denies: facial swelling, urticaria Past Medical History - Past Medical History Medical history: Reports: non-contributory Psychiatric history: Reports: depression, schizophrenia, previous psychiatric hospitalization - Social History Smoking Status: Current every day smoker Smokeless Tobacco Status: No Alcohol use: Reports: none Drug use: Reports: marijuana Physical Exam - General Limitations: no limitations General appearance: alert, anxious - Head Head exam: atraumatic, normocephalic, normal inspection - Eye Eye exam: Present: other (Abrasion to left eye) - ENT ENT exam: normal exam, normal oropharynx, mucous membranes moist - Neck Neck exam: Present: normal inspection, full ROM, trachea midline - Chest Chest inspection: Present: normal inspection, symmetric chest wall rise - Respiratory Respiratory exam: Present: normal lung sounds bilaterally - Cardiovascular Cardiovascular exam: Present: regular rate, normal rhythm, normal heart sounds - Abdominal Exam Abdominal exam: Present: soft, Non-Tender. Absent: tenderness, distention, guarding, rebound, rigidity - Extremities Exam Extremities exam: Present: normal inspection, full ROM. Absent: tenderness, pedal edema - Expanded Lower Extremity Exam Neurovascular/Tendon exam: Absent: motor deficit, sensory deficit, tendon deficit Gait: observed and normal - Back Exam Back exam: Present: normal inspection, full ROM. Absent: tenderness - Neurological Exam Neurological exam: Present: alert, oriented X3 - Psychiatric Psychiatric exam: Present: normal affect, normal mood - Skin Skin exam: Present: warm, dry, intact, normal color Course Vital Signs Temperature 98.3 F 05/23/16 15:10 Pulse Rate 103 05/23/16 15:10 Respiratory Rate 18 05/23/16 15:10 Blood Pressure 156/88 05/23/16 15:10 O2 Sat by Pulse Oximetry 97 05/23/16 15:10 Temperature 98.3 F 05/23/16 15:10 Pulse Rate 103 05/23/16 15:10 Respiratory Rate 18 05/23/16 15:10 Blood Pressure 156/88 05/23/16 15:10 O2 Sat by Pulse Oximetry 97 05/23/16 15:10 Oxygen Delivery Oxygen Delivery Room Air Psych - Lab Data Result diagrams: 05/23/16 15:58 05/23/16 15:58 Lab Results 05/23/16 05/23/16 05/23/16 Range/Units 15:58 15:58 17:06 WBC 8.8 (4.3-11.1) K/mcL RBC 4.25 (4.19-5.50) M/mcL Hgb 12.8 L (12.9-16.9) g/dL Hct 37.8 (37.5-50.1) % MCV 88.9 (83.0-100.0) fL MCH 30.1 (28.0-33.3) pg MCHC 33.9 (31.6-35.5) g/dL RDW 12.9 (11.5-14.5) % Plt Count 258 (140-400) K/mcL MPV 9.5 (9.4-12.4) fL Immature Gran % 0.3 (0-4) % Seg Neutrophils % 61.5 % Lymphocytes % 24.2 % Monocytes % 10.7 % Eosinophils % 2.6 % Basophils % 0.7 % Neutrophils # 5.4 (1.6-8.9) K/mcL Lymphocytes # 2.1 (0.6-4.6) K/mcL Monocytes # 0.9 (0.0-1.3) K/mcL Eosinophils # 0.2 (0.0-0.6) K/mcL Basophils # 0.1 (0.0-0.2) K/mcL Sodium 141 (136-145) mEq/L Potassium 3.8 (3.5-4.5) mEq/L Chloride 108 (98-109) mEq/L Carbon Dioxide 25 (19-29) mEq/L BUN 10 (8-26) mg/dL Creatinine 0.79 (0.72-1.25) mg/dL Est GFR ( Amer) > 60 (> 60) Est GFR (Non-Af Amer) > 60 (> 60) BUN/Creatinine Ratio 13 (6-26) Glucose 79 (70-99) mg/dL Calculated Osmolality 290 (280-300) Calcium 8.9 (8.6-10.8) mg/dL Urine Color Yellow (Yellow) Urine Clarity Clear (Clear) Urine pH 6.5 (5.0-8.0) pH Units Ur Specific [place] 1.009 L (1.010-1.025) Urine Protein Negative (Neg-Trace) mg/dL Urine Glucose (UA) Normal (Normal) mg/dL Urine Ketones Negative (Negative) mg/dL Urine Blood Negative (Negative) Urine Nitrite Negative (Negative) Urine Bilirubin Negative (Negative) Urine Urobilinogen Normal (Normal) mg/dL Ur Leukocyte Esterase Negative (Negative) Ur Culture Indicated? NO (NO) Salicylates < 5.0 L (15-30) mg/dL Urine Opiates Screen (Nhdrct=645) ng/mL Acetaminophen < 1.0 L (10-30) mcg/mL Ur Barbiturates Screen (Pgsdzu=682) ng/mL Ur Phencyclidine Scrn (Cutoff=25) ng/mL Ur Amphetamines Screen (Vzugrw=8825) ng/mL U Benzodiazepines Scrn (Rmdrnq=926) ng/mL Urine Cocaine Screen (Cutoff= 300) ng/mL U Marijuana (THC) Screen (Cutoff = 50) ng/mL Ethyl Alcohol < 10 (0-10) mg/dL 05/23/16 Range/Units 17:06 WBC (4.3-11.1) K/mcL RBC (4.19-5.50) M/mcL Hgb (12.9-16.9) g/dL Hct (37.5-50.1) % MCV (83.0-100.0) fL MCH (28.0-33.3) pg MCHC (31.6-35.5) g/dL RDW (11.5-14.5) % Plt Count (140-400) K/mcL MPV (9.4-12.4) fL Immature Gran % (0-4) % Seg Neutrophils % % Lymphocytes % % Monocytes % % Eosinophils % % Basophils % % Neutrophils # (1.6-8.9) K/mcL Lymphocytes # (0.6-4.6) K/mcL Monocytes # (0.0-1.3) K/mcL Eosinophils # (0.0-0.6) K/mcL Basophils # (0.0-0.2) K/mcL Sodium (136-145) mEq/L Potassium (3.5-4.5) mEq/L Chloride (98-109) mEq/L Carbon Dioxide (19-29) mEq/L BUN (8-26) mg/dL Creatinine (0.72-1.25) mg/dL Est GFR ( Amer) (> 60) Est GFR (Non-Af Amer) (> 60) BUN/Creatinine Ratio (6-26) Glucose (70-99) mg/dL Calculated Osmolality (280-300) Calcium (8.6-10.8) mg/dL Urine Color (Yellow) Urine Clarity (Clear) Urine pH (5.0-8.0) pH Units Ur Specific [place] (1.010-1.025) Urine Protein (Neg-Trace) mg/dL Urine Glucose (UA) (Normal) mg/dL Urine Ketones (Negative) mg/dL Urine Blood (Negative) Urine Nitrite (Negative) Urine Bilirubin (Negative) Urine Urobilinogen (Normal) mg/dL Ur Leukocyte Esterase (Negative) Ur Culture Indicated? (NO) Salicylates (15-30) mg/dL Urine Opiates Screen Negative (Omuoeh=026) ng/mL Acetaminophen (10-30) mcg/mL Ur Barbiturates Screen Negative (Scvkae=539) ng/mL Ur Phencyclidine Scrn Negative (Cutoff=25) ng/mL Ur Amphetamines Screen Negative (Wjqdji=9047) ng/mL U Benzodiazepines Scrn Negative (Ukxudp=741) ng/mL Urine Cocaine Screen Negative (Cutoff= 300) ng/mL U Marijuana (THC) Screen Positive H (Cutoff = 50) ng/mL Ethyl Alcohol (0-10) mg/dL Psychiatric Medical Clearance - Medical Clearance Checklist Does the patient have a NEW psychiatric condition?: Yes Any abnormalities indicating possible medical illness?: No Any history of medical issues?: No Medical History: No Social History Section defined Any abnormal vital signs prior to transfer?: No Current Vitals: Last Vital Signs Temp 98.3 F 05/23/16 15:10 Pulse 103 05/23/16 15:10 Resp 18 05/23/16 15:10 BP 156/88 05/23/16 15:10 Pulse Ox 97 05/23/16 15:10 Is the patient intoxicated or cognitively impaired?: No Psychiatric Lab Panel: Drug Levels and Toxicity 05/23/16 05/23/16 15:58 17:06 Urine Opiates Screen Negative Acetaminophen < 1.0 L Ur Barbiturates Screen Negative Ur Phencyclidine Scrn Negative Ur Amphetamines Screen Negative U Benzodiazepines Scrn Negative Urine Cocaine Screen Negative U Marijuana (THC) Screen Positive H Ethyl Alcohol < 10 Any abnormalities on the physical exam?: No Any abnormal labs?: No Abnormal Labs: Abnormal lab results Hgb 12.8 g/dL (12.9-16.9) L 05/23/16 15:58 Ur Specific [place] 1.009 (1.010-1.025) L 05/23/16 17:06 Salicylates < 5.0 mg/dL (15-30) L 05/23/16 15:58 Acetaminophen < 1.0 mcg/mL (10-30) L 05/23/16 15:58 U Marijuana (THC) Screen Positive ng/mL (Cutoff = 50) H 05/23/16 17:06 Does the patient require durable medical equiptment?: No Is the patient ambulatory?: Yes Is the patient a fall risk?: No Has the patient been medically cleared?: Yes Any acute medical condition require Tx prior to transfer?: No Statement of Medical Clearance: I have evaluated the patient, reviewed diagnostic information, and certify that the patient's medical condition is sufficiently stable that transfer to the psychiatric unit does not pose a significant risk of deterioration.
[2016-05-23 16:05] LABS: Basophils # 0.1 K/mcL (0.0-0.2); Basophils % 0.7 %; Eosinophils # 0.2 K/mcL (0.0-0.6); Eosinophils % 2.6 %; Hematocrit 37.8 % (37.5-50.1); Hemoglobin 12.8 g/dL (12.9-16.9); Immature Granulocytes % 0.3 % (0-4); Lymphocytes # 2.1 K/mcL (0.6-4.6); Lymphocytes % 24.2 %; Mean Corpuscular HGB Conc 33.9 g/dL (31.6-35.5); Mean Corpuscular Hemoglobin 30.1 pg (28.0-33.3); Mean Corpuscular Volume 88.9 fL (83.0-100.0); Mean Platelet Volume 9.5 fL (9.4-12.4); Monocytes # 0.9 K/mcL (0.0-1.3); Monocytes % 10.7 %; Neutrophils # 5.4 K/mcL (1.6-8.9); Platelet Count 258 K/mcL (140-400); Red Blood Count 4.25 M/mcL (4.19-5.50); Red Cell Distribution Width 12.9 % (11.5-14.5); Segmented Neutrophils % 61.5 %
[2016-05-23 16:21] LABS: BUN/Creatinine Ratio 13 (6-26); Blood Urea Nitrogen 10 mg/dL (8-26); Calcium 8.9 mg/dL (8.6-10.8); Carbon Dioxide 25 mEq/L (19-29); Chloride 108 mEq/L (98-109); Glucose 79 mg/dL (70-99); Osmolality,Calculated 290 (280-300); Potassium 3.8 mEq/L (3.5-4.5); Sodium 141 mEq/L (136-145); eGFR For African Americans > 60 (> 60); eGFR For Non-African Americans > 60 (> 60)
[2016-05-23 16:23] LABS: Acetaminophen < 1.0 mcg/mL (10-30); Ethanol < 10 mg/dL (0-10); Salicylate < 5.0 mg/dL (15-30)
[2016-05-23 17:24] LABS: Bilirubin,Urine Negative (Negative); Blood,Urine Negative (Negative); Clarity,Urine Clear (Clear); Color,Urine Yellow (Yellow); Glucose,Urine (UA) Normal (Normal); Ketones,Urine Negative (Negative); Leukocyte Esterase,Urine Negative (Negative); Nitrite,Urine Negative (Negative); PH,Urine 6.5 pH Units (5.0-8.0); Protein,Urine Negative (Neg-Trace); Specific Gravity,Urine 1.009 (1.010-1.025); Urobilinogen,Urine Normal (Normal)
[2016-05-23 17:31] LABS: Amphetamine Screen,Urine Negative ng/mL (Cutoff=1000); Barbiturate Screen,Urine Negative ng/mL (Cutoff=200); Benzodiazepines Screen,Urine Negative ng/mL (Cutoff=200); Cannabinoid Screen,Urine Positive ng/mL (Cutoff = 50); Cocaine Screen,Urine Negative ng/mL (Cutoff= 300); Opiate Screen,Urine Negative ng/mL (Cutoff=300); Phencyclidine Screen,Urine Negative ng/mL (Cutoff=25)
[2016-05-23] MEDS ORDERED: Haloperidol Lactate 5 MG/ML VIAL IM PRN (19:53)
[2016-05-23] MEDS ORDERED: MOM Conc 10 ML UD.LIQ PO PRN (19:53)
[2016-05-23] MEDS ORDERED: *HR* LORazepam 1 MG TABLET PO PRN (19:53)
[2016-05-23] MEDS ORDERED: traZODone 50 MG TABLET PO PRN (19:53)
[2016-05-23] MEDS ORDERED: hydrOXYzine pamoate 25 MG CAPSULE PO PRN (19:53)
[2016-05-23] MEDS ORDERED: Acetaminophen 325 MG TABLET PO PRN (19:53)
[2016-05-23] MEDS ORDERED: *HR* LORazepam 2 MG/ML VIAL IM PRN (19:53)
[2016-05-23] MEDS ORDERED: Mag Hydrox/Al Hydrox/Simeth 30 ML UDC PO PRN (19:53)
[2016-05-23] MEDS: Nicotine 21 MG PATCH.TD24 TD SCH (20:44)
[2016-05-24] MEDS: Nicotine 21 MG PATCH.TD24 TD SCH (08:56)
--- NOTE | 2016-05-24 11:28 | Psychiatry History & Physical ---
Date of Encounter: 05/24/16 Time of Encounter: 11:00 History of Present Illness Patient Stated Chief Complaint: Paranoia or homicidal ideation Medicare Admission Attestation: For traditional Medicare patients the provided hospital inpatient services are reasonable and necessary and in the case of services not specified as inpatient -only under 42 CFR 419.22 (n), that they are appropriately provided as inpatient services in accordance 42 CFR 412.3. For Critical Access Hospital the patient may reasonably be expected to be discharged or transferred to a hospital within 96 hours after admission to the Critical Access Hospital. Admitted From: Emergency Dept History of Present Illness: Mr. Lima is a 40 year old male with a long history of psychiatric treatment for schizoaffective disorder bipolar type, who presented to the ED with a complaint of paranoia and homicidal ideation. Patient has been noncompliant with his medication and experience increasing paranoia and was having homicidal thoughts towards people that were nonspecific. Patient has been recently hospitalized in March and discharged on medication and follow-up patient tox screen in the ED was positive for THC. Patient reported poor sleep, paranoid delusions, homicidal ideation. She will being watched and suspicious of other people. Past Med Surg Social Fam HX - Past Medical History Medical history: asthma, COPD, hypertension - Past Psychiatric History Psychiatric history: Reports: bipolar, schizophrenia, previous psychiatric hospitalization Past psychiatric history details: Recently hospitalized in March 2016 for exacerbation of schizoaffective disorder bipolar type. Family psychiatric history: Unknown Family History of Suicide: Unknown - Social History Smoking Status: Current every day smoker Smokeless Tobacco Status: No Alcohol use: none Drug use: marijuana Medications & Allergies Mirtazapine 30 mg PO HS 03/16/16 [History] Paliperidone Palmitate [Invega Sustenna] 234 mg IM QMONTH 03/16/16 [History] Benztropine Mesylate 1 mg PO HS #30 tablet 03/19/16 [Rx] Divalproex (12 HR) [Depakote (12 HR)] 500 mg PO BID #60 tablet. 03/19/16 [Rx] HydrOXYzine Pamoate [Vistaril] 50 mg PO TID PRN #90 capsule 03/19/16 [Rx] Citalopram Hydrobromide [Celexa] 20 mg PO DAILY 05/24/16 [History] ClonazePAM [Klonopin] 1 mg PO BID 05/24/16 [History] RisperiDONE [Risperidone] 3 mg PO BID 05/24/16 [History] Allergies No Known Allergies Allergy (Verified 03/16/16 16:48) Review of Systems Psychiatric: Reports: abnormal sleep pattern, homicidal ideation, other ( Paranoid delusion) Mental Status Exam Patient orientation: Yes Person, Yes Time, Yes Place Level of alertness: Alert Patient appearance: Appropriate, Unkempt, Disheveled, Obese Behavior: cooperative, anxious, suspicious Psychomotor activity: Normal Eye contact: Maintains Eye Contact Mood description: Anxious, Labile Affect description: congruent with mood, labile, dysphoric, anxious Speech pattern: Normal rate, Normal rhythm, Normal tone, Limited Speech volume: Normal Thought process: Linear, Goal Oriented, Flight of Ideas Thought content: No Suicidal ideation, Yes Homicidal ideation, No Overt delusions, Yes Paranoid delusion, Yes Obsessive thoughts Perceptual disturbances: No Auditory hallucinations, No Visual hallucinations Attention span: Unable to Focus Memory description: Grossly Intact Patient reliability: Reliable Historian Intelligence estimate: Below Average Judgment: Limited Insight: Partial Results - Vital Signs Vital signs: Temp Pulse Resp BP Pulse Ox 99.6 F 96 18 121/72 97 05/24/16 08:44 05/24/16 08:44 05/24/16 08:44 05/24/16 08:44 05/23/16 15:10 - Labs Labs: Laboratory Last Values WBC 8.8 K/mcL (4.3-11.1) 05/23/16 15:58 RBC 4.25 M/mcL (4.19-5.50) 05/23/16 15:58 Hgb 12.8 g/dL (12.9-16.9) L 05/23/16 15:58 Hct 37.8 % (37.5-50.1) 05/23/16 15:58 MCV 88.9 fL (83.0-100.0) 05/23/16 15:58 MCH 30.1 pg (28.0-33.3) 05/23/16 15:58 MCHC 33.9 g/dL (31.6-35.5) 05/23/16 15:58 RDW 12.9 % (11.5-14.5) 05/23/16 15:58 Plt Count 258 K/mcL (140-400) 05/23/16 15:58 MPV 9.5 fL (9.4-12.4) 05/23/16 15:58 Immature Gran % 0.3 % (0-4) 05/23/16 15:58 Seg Neutrophils % 61.5 % 05/23/16 15:58 Lymphocytes % 24.2 % 05/23/16 15:58 Monocytes % 10.7 % 05/23/16 15:58 Eosinophils % 2.6 % 05/23/16 15:58 Basophils % 0.7 % 05/23/16 15:58 Neutrophils # 5.4 K/mcL (1.6-8.9) 05/23/16 15:58 Lymphocytes # 2.1 K/mcL (0.6-4.6) 05/23/16 15:58 Monocytes # 0.9 K/mcL (0.0-1.3) 05/23/16 15:58 Eosinophils # 0.2 K/mcL (0.0-0.6) 05/23/16 15:58 Basophils # 0.1 K/mcL (0.0-0.2) 05/23/16 15:58 Sodium 141 mEq/L (136-145) 05/23/16 15:58 Potassium 3.8 mEq/L (3.5-4.5) 05/23/16 15:58 Chloride 108 mEq/L (98-109) 05/23/16 15:58 Carbon Dioxide 25 mEq/L (19-29) 05/23/16 15:58 BUN 10 mg/dL (8-26) 05/23/16 15:58 Creatinine 0.79 mg/dL (0.72-1.25) 05/23/16 15:58 Est GFR ( Amer) > 60 (> 60) 05/23/16 15:58 Est GFR (Non-Af Amer) > 60 (> 60) 05/23/16 15:58 BUN/Creatinine Ratio 13 (6-26) 05/23/16 15:58 Glucose 79 mg/dL (70-99) 05/23/16 15:58 Calculated Osmolality 290 (280-300) 05/23/16 15:58 Calcium 8.9 mg/dL (8.6-10.8) 05/23/16 15:58 Urine Color Yellow (Yellow) 05/23/16 17:06 Urine Clarity Clear (Clear) 05/23/16 17:06 Urine pH 6.5 pH Units (5.0-8.0) 05/23/16 17:06 Ur Specific [place] 1.009 (1.010-1.025) L 05/23/16 17:06 Urine Protein Negative mg/dL (Neg-Trace) 05/23/16 17:06 Urine Glucose (UA) Normal mg/dL (Normal) 05/23/16 17:06 Urine Ketones Negative mg/dL (Negative) 05/23/16 17:06 Urine Blood Negative (Negative) 05/23/16 17:06 Urine Nitrite Negative (Negative) 05/23/16 17:06 Urine Bilirubin Negative (Negative) 05/23/16 17:06 Urine Urobilinogen Normal mg/dL (Normal) 05/23/16 17:06 Ur Leukocyte Esterase Negative (Negative) 05/23/16 17:06 Ur Culture Indicated? NO (NO) 05/23/16 17:06 Salicylates < 5.0 mg/dL (15-30) L 05/23/16 15:58 Urine Opiates Screen Negative ng/mL (Mtvwzf=496) 05/23/16 17:06 Acetaminophen < 1.0 mcg/mL (10-30) L 05/23/16 15:58 Ur Barbiturates Screen Negative ng/mL (Bmnwdl=529) 05/23/16 17:06 Ur Phencyclidine Scrn Negative ng/mL (Cutoff=25) 05/23/16 17:06 Ur Amphetamines Screen Negative ng/mL (Nrxbpz=5251) 05/23/16 17:06 U Benzodiazepines Scrn Negative ng/mL (Gptkdx=058) 05/23/16 17:06 Urine Cocaine Screen Negative ng/mL (Cutoff= 300) 05/23/16 17:06 U Marijuana (THC) Screen Positive ng/mL (Cutoff = 50) H 05/23/16 17:06 Ethyl Alcohol < 10 mg/dL (0-10) 05/23/16 15:58 Assessment and Plan (1) Schizoaffective disorder, bipolar type Current visit: Yes Status: Acute Plan: Admit inpatient for safety and stabilization, Close observation, Suicide Precautions per unit protocol, Encourage participation in unit milieu, Group Therapy, Monitor sleep, Monitor appetite Additional Plan: Will check Depakote level and restart his medication. Risks, benefits, side effects, alternatives discussed w/pt: Yes Patient agreeable to treatment: Yes Estimated Length of Stay (Days): 5
[2016-05-24] MEDS ORDERED: hydrOXYzine pamoate 25 MG CAPSULE PO PRN (13:29)
[2016-05-24] MEDS ORDERED: Paliperidone Palmitate [Invega Sustenna] 234 MG IM SCH (13:30)
[2016-05-24] MEDS: clonazePAM 0.5 MG TABLET PO SCH ×2 (14:32→21:33)
[2016-05-24] MEDS: Mirtazapine 15 MG TABLET PO SCH (21:33)
[2016-05-24] MEDS: Divalproex (12 HR) 500 MG TABLET PO SCH (21:33)
[2016-05-24] MEDS: RisperiDAL 3 MG TABLET PO SCH (21:33)
[2016-05-25] MEDS: Nicotine 21 MG PATCH.TD24 TD SCH (08:15)
[2016-05-25] MEDS: RisperiDAL 3 MG TABLET PO SCH ×2 (08:16→20:40)
[2016-05-25] MEDS: Divalproex (12 HR) 500 MG TABLET PO SCH ×2 (08:16→20:40)
[2016-05-25] MEDS: clonazePAM 0.5 MG TABLET PO SCH ×2 (08:16→20:39)
--- NOTE | 2016-05-25 12:33 | Psychiatry Progress Note ---
Date of Encounter: 05/25/16 Time of Encounter: 12:31 Subjective Interval history: Patient is seen for follow-up. Staff reported that she is compliant with his medication and attending groups and still anxious and pacing at times. His Depakote level came back very low at 18. I explained to him that Depakote level depend on his compliance and he understands that medication should be taken regularly. He denies any hallucination or suicidal ideation. Review of Systems Psychiatric: Reports: abnormal sleep pattern, homicidal ideation, other ( Paranoid delusion) Objective: Exam Patient orientation: Yes Person, Yes Time, Yes Place Level of alertness: Alert Patient appearance: Appropriate, Unkempt Behavior: cooperative, anxious, suspicious Psychomotor activity: Normal Eye contact: Maintains Eye Contact Mood description: Anxious, Labile Affect description: congruent with mood, labile, constricted Speech pattern: Normal rate, Normal rhythm, Normal tone, Limited Speech volume: Normal Thought process: Linear, Goal Oriented Thought content: No Suicidal ideation, No Homicidal ideation, No Overt delusions Perceptual disturbances: No Auditory hallucinations, No Visual hallucinations Judgment: Fair Insight: Partial Results - Vital Signs Vital Signs: Temp Pulse Resp BP Pulse Ox 97.8 F 54 18 98/71 97 05/25/16 09:00 05/25/16 09:00 05/25/16 09:00 05/25/16 09:00 05/23/16 15:10 - Labs Labs: Laboratory Results - last 24 hr 05/24/16 13:26 Valproic Acid 18.55 L Assessment and Plan (1) Schizoaffective disorder, bipolar type Current visit: Yes Status: Acute Plan: Continue hospitalization, Close observation, Suicide Precautions per unit protocol, Encourage participation in unit milieu, Group Therapy, Monitor sleep, Monitor appetite Additional Plan: Will repeat Depakote level in a.m. Risks, benefits, side effects, alternatives discussed w/pt: Yes Patient agreeable to treatment: Yes Consult Discharge Plan - Plan Referrals: [facility] [Outside] - 05/28/16 10:00 am (The above appointment is with Teresa Jordan, briefcase sewer. You will also see Dr. Marx on 06/07/2016 at 6 :30pm. [facility] [place] daily medications [place]
[2016-05-25] MEDS: Mirtazapine 15 MG TABLET PO SCH (20:41)
[2016-05-26] MEDS: Divalproex (12 HR) 500 MG TABLET PO SCH (08:22)
[2016-05-26] MEDS: clonazePAM 0.5 MG TABLET PO SCH (08:22)
[2016-05-26] MEDS: RisperiDAL 3 MG TABLET PO SCH (08:23)
[2016-05-26] MEDS: Nicotine 21 MG PATCH.TD24 TD SCH (08:23)
--- NOTE | 2016-05-26 12:32 | Discharge Summary ---
Date of Encounter: 05/26/16 Time of Encounter: 12:24 Diagnosis - Discharge Diagnosis (1) Schizoaffective disorder, bipolar type Status: Acute Medications - Discharge Medications Prescriptions: Benztropine Mesylate 1 mg PO HS #30 tablet Citalopram Hydrobromide [Celexa] 20 mg PO DAILY #30 tablet Divalproex (12 HR) [Depakote (12 HR)] 500 mg PO BID #60 tablet. RisperiDONE [Risperidone] 3 mg PO BID #60 tablet Mirtazapine 30 mg PO HS 03/16/16 [History] Paliperidone Palmitate [Invega Sustenna] 234 mg IM QMONTH 03/16/16 [History] HydrOXYzine Pamoate [Vistaril] 50 mg PO TID PRN #90 capsule 03/19/16 [Rx] ClonazePAM [Klonopin] 1 mg PO BID 05/24/16 [History] Benztropine Mesylate 1 mg PO HS #30 tablet 05/26/16 [Rx] Citalopram Hydrobromide [Celexa] 20 mg PO DAILY #30 tablet 05/26/16 [Rx] Divalproex (12 HR) [Depakote (12 HR)] 500 mg PO BID #60 tablet. 05/26/16 [Rx] RisperiDONE [Risperidone] 3 mg PO BID #60 tablet 05/26/16 [Rx] Allergies No Known Allergies Allergy (Verified 03/16/16 16:48) Results Procedures and tests throughout hospitalization: Completed Lab Orders Category Date Time Status Valproate Routine Lab 05/25/16 12:49 Completed Provider Date of admission: 05/24/16 11:29 Primary care physician: Brennon Armstrong MD Discharging clinician: Regis Olivares Assessment and Plan - Patient/Caregiver Discharge Instructions Activity: resume usual activities as tolerated Diet: regular diet - Follow up Plan Follow up with: [facility] [Outside] - 05/28/16 10:00 am (The above appointment is with Teresa Jordan case specialist. You will also see Dr. Marx on 06/07/2016 at 6 :30pm. [facility] [place] daily [place] Functional capacity at discharge: independent ambulation Overall status at discharge: Stable Disposition: Home, Self-Care Hospital Course Hospital course: Mr. Lima is a 40 year old male admitted from the emergency room decompensation of schizoaffective disorder bipolar type patient was having auditory hallucination and suicidal ideation and paranoid delusions. For details of the admission please see H&P On the units patient's was evaluated and his medication review. Depakote level was 18 on admission and 60 on discharge. Noncompliance due to noncompliance. Patient was compliant with medication on the unit and participated in group activities she denies any problem with sleep he denied any auditory hallucinations or suicidal ideation. Prior to discharge he was medically stable and future oriented, he was educated about medication compliance. - Time Spent with Patient Total time spent providing and/or coordinating discharge services: Less than 30 minutes Quality - Multiple Antipsychotics Patient discharged on 2 or more antipsychotic medications: No Procedures - Procedures Procedures: Medication Management, Crisis Stabilization, Supportive Therapy, Group Therapy, Psychoeducational Therapy Mental Status Exam - Mental Status Exam Patient orientation: Yes Person, Yes Time, Yes Place Level of alertness: Alert Patient appearance: Appropriate, Well Groomed Behavior: calm, cooperative, anxious Psychomotor activity: Normal Eye contact: Maintains Eye Contact Mood description: Euthymic/stable, Anxious Affect description: congruent with mood, full range Speech pattern: Normal rate, Normal rhythm, Normal tone Speech Volume: Normal Thought process: Linear, Goal Oriented Thought Content: No Suicidal ideation, No Homicidal ideation, No Overt delusions Perceptual Disturbances: No Auditory hallucinations, No Visual hallucinations Judgment: Limited Insight: Partial
[2016-05-26 14:27] VITALS: BP 99/69
== END 2016-05-26 14:25 | disposition home or self-care (01) | DRG 885 ==
LOC: 1ANU 15:08 → EMEROO 15:08 → SUATTDRO 18:43 → 1ANU 19:00
PROVIDERS: ADMIT Psychiatry & Neurology Psychiatry; ATTEND Psychiatry & Neurology Psychiatry

== ENCOUNTER 2020-02-17 02:15 | Observation (INO) ==
[2020-02-17 02:45] LABS: Basophils # 0.1 K/mcL (0.0-0.2); Basophils % 0.6 %; Eosinophils # 0.2 K/mcL (0.0-0.6); Eosinophils % 2.1 %; Hematocrit 41.9 % (37.5-50.1); Hemoglobin 13.7 g/dL (12.9-16.9); Immature Granulocytes % 0.3 % (0-4); Lymphocytes # 3.1 K/mcL (0.6-4.6); Lymphocytes % 31.6 %; Mean Corpuscular HGB Conc 32.7 g/dL (31.6-35.5); Mean Corpuscular Hemoglobin 29.4 pg (28.0-33.3); Mean Corpuscular Volume 89.9 fL (83.0-100.0); Mean Platelet Volume 9.8 fL (9.4-12.4); Monocytes # 0.9 K/mcL (0.0-1.3); Neutrophils # 5.6 K/mcL (1.6-8.9); Platelet Count 290 K/mcL (140-400); Red Blood Count 4.66 M/mcL (4.19-5.50); Red Cell Distribution Width 13.3 % (11.5-14.5); Segmented Neutrophils % 56.4 %; White Blood Count 9.9 K/mcL (4.3-11.1)
[2020-02-17 02:53] LABS: Bilirubin,Urine Negative (Negative); Blood,Urine Negative (Negative); Clarity,Urine Clear (Clear); Color,Urine Colorless (Yellow); Glucose,Urine (UA) Normal (Normal); Ketones,Urine Negative (Negative); Leukocyte Esterase,Urine Negative (Negative); Nitrite,Urine Negative (Negative); Protein,Urine Negative (Neg-Trace); Urobilinogen,Urine Normal (Normal)
[2020-02-17 03:09] LABS: Acetaminophen < 10 mcg/mL (10-20); BUN/Creatinine Ratio 10 (6-26); Blood Urea Nitrogen 10 mg/dL (6-20); Calcium 9.2 mg/dL (8.6-10.3); Carbon Dioxide 26 mEq/L (23-29); Chloride 104 mEq/L (98-107); Ethanol < 10 mg/dL (Less than 10); Glucose 99 mg/dL (70-105); Osmolality,Calculated 289 (280-300); Potassium 3.4 mEq/L (3.5-5.1); Salicylate < 2.5 mg/dL (15.0-30.0); Sodium 140 mEq/L (136-145); eGFR For African Americans > 60 (> 60); eGFR For Non-African Americans > 60 (> 60)
[2020-02-17 03:11] LABS: Amphetamine Screen,Urine Negative ng/mL (Cutoff=1000); Barbiturate Screen,Urine Negative ng/mL (Cutoff=200); Benzodiazepines Screen,Urine Negative ng/mL (Cutoff=200); Cannabinoid Screen,Urine Positive ng/mL (Cutoff = 50); Cocaine Screen,Urine Positive ng/mL (Cutoff= 300); Opiate Screen,Urine Negative ng/mL (Cutoff=300); Phencyclidine Screen,Urine Negative ng/mL (Cutoff=25)
[2020-02-17] MEDS ORDERED: Haloperidol Lactate 5 MG/ML VIAL IM PRN (04:21)
[2020-02-17] MEDS ORDERED: hydrOXYzine pamoate 25 MG CAPSULE PO PRN (04:21)
[2020-02-17] MEDS ORDERED: MOM Conc 10 ML UD.LIQ PO PRN (04:21)
[2020-02-17] MEDS ORDERED: *HR* LORazepam 2 MG/ML VIAL IM PRN (04:21)
[2020-02-17] MEDS ORDERED: Mag Hydrox/Al Hydrox/Simeth 30 ML UDC PO PRN (04:21)
[2020-02-17] MEDS ORDERED: traZODone 50 MG TABLET PO PRN (04:21)
[2020-02-17] MEDS ORDERED: Ibuprofen 400 MG TABLET PO PRN (04:21)
[2020-02-17] MEDS ORDERED: haloperidoL 5 MG TABLET PO PRN (04:21)
[2020-02-17] MEDS ORDERED: *HR* LORazepam 1 MG TABLET PO PRN (04:21)
[2020-02-17] MEDS ORDERED: Nicotine 21 MG PATCH.TD24 TD SCH (09:00)
[2020-02-17 09:47] VITALS: BP 126/70
[2020-02-17] MEDS ORDERED: OLANZapine 10 MG TAB.RAPDIS PO SCH (21:00)
== END 2020-02-17 13:50 | disposition other institution (70) ==
LOC: EMEROOARM 02:15 → INTOOBSV 04:20 → 1ANU 04:20
PROVIDERS: ADMIT Psychiatry & Neurology Psychiatry; ATTEND Psychiatry & Neurology Psychiatry

== ENCOUNTER 2021-12-03 16:44 | Observation (INO) ==
[2021-12-03] MEDS ORDERED: *HR* Etomidate 20 MG/10 ML AMPUL IVP ONE ×2 (16:52→17:01)
[2021-12-03] MEDS ORDERED: 0.9 % Sodium Chloride 1,000 ML IVC ONE (16:54)
[2021-12-03 17:16] LABS: Basophils # 0.1 K/mcL (0.0-0.2); Basophils % 0.7 %; Eosinophils # 0.3 K/mcL (0.0-0.6); Eosinophils % 2.2 %; Hematocrit 51.3 % (37.5-50.1); Hemoglobin 16.8 g/dL (12.9-16.9); Immature Granulocytes % 0.2 % (0-4); Lymphocytes # 3.4 K/mcL (0.6-4.6); Lymphocytes % 28.9 %; Mean Corpuscular HGB Conc 32.7 g/dL (31.6-35.5); Mean Corpuscular Volume 91.6 fL (83.0-100.0); Mean Platelet Volume 9.9 fL (9.4-12.4); Monocytes % 8.4 %; Neutrophils # 7.1 K/mcL (1.6-8.9); Platelet Count 335 K/mcL (140-400); Red Cell Distribution Width 12.5 % (11.5-14.5); Segmented Neutrophils % 59.6 %; White Blood Count 11.9 K/mcL (4.3-11.1)
[2021-12-03 17:30] LABS: Prothrombin Time 10.8 Seconds (9.4-12.1)
[2021-12-03 17:33] LABS: Activated Partial Thrombo Time 35.3 Seconds (26.0-36.0); BUN/Creatinine Ratio 12 (6-26); Blood Urea Nitrogen 12 mg/dL (6-20); Calcium 9.8 mg/dL (8.6-10.3); Carbon Dioxide 29 mEq/L (23-29); Chloride 103 mEq/L (98-107); Glucose 100 mg/dL (70-105); Magnesium 2.5 mg/dL (1.6-2.6); Osmolality,Calculated 288 (280-300); Potassium 3.7 mEq/L (3.5-5.1); Sodium 139 mEq/L (136-145)
[2021-12-03 17:34] LABS: Troponin I < 0.03 ng/mL (< 0.04)
[2021-12-03 17:47] LABS: Thyroid Stimulating Hormone 3.876 mcIU/mL (0.340-5.600)
[2021-12-03 18:32] LABS: Amphetamine Screen,Urine Negative ng/mL (Cutoff=1000); Barbiturate Screen,Urine Negative ng/mL (Cutoff=200); Benzodiazepines Screen,Urine Negative ng/mL (Cutoff=200); Cannabinoid Screen,Urine Positive ng/mL (Cutoff = 50); Cocaine Screen,Urine Positive ng/mL (Cutoff= 300); Opiate Screen,Urine Negative ng/mL (Cutoff=300); Phencyclidine Screen,Urine Negative ng/mL (Cutoff=25)
[2021-12-03] MEDS ORDERED: Melatonin 3 MG TABLET PO PRN (19:56)
[2021-12-03] MEDS ORDERED: *HR* Promethazine 25 MG/ML VIAL IM PRN (19:56)
[2021-12-03] MEDS ORDERED: Ondansetron 4 MG/2 ML VIAL IVP PRN (19:56)
[2021-12-03] MEDS ORDERED: Naloxone 0.4 MG/ML INJ IVP PRN (19:56)
[2021-12-03] MEDS ORDERED: Acetaminophen 325 MG TABLET PO PRN (19:56)
[2021-12-03] MEDS: DilTIAZem 50 MG/50 ML IV.SOLN IVC SCH (21:17)
[2021-12-03] MEDS ORDERED: Ipratropium/Albuterol Neb 3 ML IH PRN (23:07)
[2021-12-04 02:46] LABS: Basophils # 0.1 K/mcL (0.0-0.2); Basophils % 0.9 %; Eosinophils # 0.2 K/mcL (0.0-0.6); Eosinophils % 2.2 %; Hematocrit 49.1 % (37.5-50.1); Hemoglobin 16.1 g/dL (12.9-16.9); Immature Granulocytes % 0.4 % (0-4); Lymphocytes # 3.7 K/mcL (0.6-4.6); Lymphocytes % 35.3 %; Mean Corpuscular HGB Conc 32.8 g/dL (31.6-35.5); Mean Corpuscular Hemoglobin 30.1 pg (28.0-33.3); Mean Corpuscular Volume 91.8 fL (83.0-100.0); Monocytes # 0.9 K/mcL (0.0-1.3); Neutrophils # 5.4 K/mcL (1.6-8.9); Platelet Count 328 K/mcL (140-400); Red Blood Count 5.35 M/mcL (4.19-5.50); Red Cell Distribution Width 12.7 % (11.5-14.5); Segmented Neutrophils % 52.2 %; White Blood Count 10.4 K/mcL (4.3-11.1)
[2021-12-04 02:57] LABS: Prothrombin Time 11.5 Seconds (9.4-12.1)
[2021-12-04 03:15] LABS: BUN/Creatinine Ratio 14 (6-26); Blood Urea Nitrogen 12 mg/dL (6-20); Calcium 9.1 mg/dL (8.6-10.3); Carbon Dioxide 28 mEq/L (23-29); Chloride 107 mEq/L (98-107); Chol/HDL Ratio 4.6 (0-4.9); Cholesterol 152 mg/dL (< 200); Glucose 103 mg/dL (70-105); HDL Cholesterol 33 mg/dL (40-59); LDL Cholesterol,Calculated 90 mg/dL (< 100); Magnesium 2.3 mg/dL (1.6-2.6); Osmolality,Calculated 290 (280-300); Phosphorous 3.7 mg/dL (2.7-4.5); Sodium 140 mEq/L (136-145); Triglycerides 144 mg/dL (< 150); Troponin I < 0.03 ng/mL (< 0.04)
[2021-12-04] MEDS: DilTIAZem 50 MG/50 ML IV.SOLN IVC SCH (04:31)
[2021-12-04] MEDS ORDERED: *HR* Enoxaparin 40 MG/0.4 ML SYRINGE SQ SCH (06:00)
[2021-12-04] MEDS ORDERED: Regadenoson 0.4 MG/5 ML SYRINGE IVP ONE (06:37)
[2021-12-04] MEDS: Budesonide/Formoterol 160/4.5 1 PUFF INH IH SCH ×2 (07:13→20:11)
[2021-12-04] MEDS ORDERED: DilTIAZem CD (24hr) 180 MG CAP.ER.24H PO SCH (09:00)
[2021-12-04] MEDS ORDERED: Aspirin Enteric Coated 81 MG Tablet PO SCH (11:30)
[2021-12-04] MEDS ORDERED: clonazePAM 0.5 MG TABLET PO PRN (11:32)
[2021-12-04 19:30] VITALS: BP 126/69; PULSE 81; TEMP 98.8; O2SAT 97
[2021-12-05] MEDS ORDERED: ARIPiprazole 5 MG TABLET PO SCH (09:00)
== END 2021-12-04 20:15 | disposition left against medical advice (07) ==
LOC: EMEROOARM 16:44 → 2ANU 16:44 → SUATTDRO 20:12 → 2ANU 21:02
PROVIDERS: ADMIT Internal Medicine; ATTEND Internal Medicine